=== PATIENT | male | born 1950 | race Caucasian/White ===

== ENCOUNTER 2018-05-14 11:21 | Emergency (ER) | payer MEDICARE, SELFPAY ==
[2018-05-14] VITALS (14 sets, daily range): BP systolic 129–185; BP diastolic 60–103; PULSE 41–83; RESP 12–21; TEMP 36.4; O2SAT 53–99
--- NOTE | 2018-05-14 11:31 | DI.RAD.S_ITS ---
PROCEDURE: XR WRIST RT MIN 3V INDICATIONS: injury, fell off ladder TECHNIQUE: 3 views of the wrist were acquired. COMPARISON: None. FINDINGS: Bones: Acute comminuted fracture involving distal radial shaft with fracture line extending to radiocarpal joint space. There is dorsal displacement and angulation at fracture site and shortening of distal radial shaft. Scaphoid view: Scaphoid is grossly intact. Soft tissues: No suspicious soft tissue calcifications. IMPRESSION: Acute comminuted intra-articular distal radial fracture as above. Dictated by: Paul Olsen M.D. on 05/14/2018 at 11:48 Approved by: Paul Olsen M.D. on 05/14/2018 at 11:49
--- NOTE | 2018-05-14 11:35 | ED_ITS ---
HPI - Extremity Injury (Upper) General Chief Complaint: Trauma Stated Complaint: RT HAND, WRIST SWELLING , PAIN Time Seen by Provider: 05/14/18 11:32 Source: patient Mode of arrival: ambulatory Limitations: no limitations History of Present Illness HPI narrative: Patient is a 67-year-old male here for evaluation of a right wrist injury. Patient states that prior to arrival he was up on a ladder trimming a tree when he fell landing on his right wrist and his right side. States he did not hit his head. Was able to ambulate afterwards. Does have right-sided pain. No neck pain. No headache. Does have deformity to the right wrist. No interventions prior to arrival here in the emergency department. Patient arrived by POV. Related Data Previous Rx's Medication Instructions Recorded hydrocodone-acetaminophen 1 tab PO Q4-6H PRN #14 tab 05/14/18 Allergies Allergy/AdvReac Type Severity Reaction Status Date / Time No Known Drug Allergies Allergy Verified 05/14/18 11:42 Review of Systems Constitutional Denies fatigue, Denies fever(s), Denies frequent falls and Denies headache(s) Eyes Denies blurry vision and Denies diplopia ENT Ears, Nose, Mouth, and Throat: Denies dental pain, Denies dizziness, Denies headache(s), Denies neck pain and Denies sore throat Cardiovascular Denies chest pain, Denies syncope and Denies dyspnea Respiratory Denies dyspnea Gastrointestinal Gastrointestinal: Denies abdominal pain, Denies change in bowel habits and Denies nausea Musculoskeletal Denies neck pain Comments: Right wrist pain Integumentary/Breasts Denies lesions and Denies rash Neurologic Denies confusion, Denies dizziness, Denies syncope, Denies frequent falls and Denies headache(s) Psychiatric Denies confusion Endocrine Denies fatigue Hematologic/Lymphatic Denies easy bleeding and Denies easy bruising [facility] Medical History Diabetes (Acute) Surgical History No pertinent past surgical history (Acute) Social History Smoking Status: Never smoker Exam Initial Vital Signs Initial Vital Signs: Vital Signs Temperature 97.5 F L 05/14/18 11:36 Pulse Rate 41 L 09/08/18 11:36 Respiratory Rate 18 05/14/18 11:36 Blood Pressure 139/60 05/14/18 11:36 Pulse Oximetry 98 05/14/18 11:36 Const General: cooperative, healthy appearing, comfortable, well developed, well groomed and No acute distress Orientation: alert, awake and oriented x3 HENMT Head: normal to inspection, normocephalic and atraumatic Nose: external nose normal Face and sinus: normal facial exam Chest Chest: normal inspection of the chest and normal palpation of entire chest wall Resp Effort & Inspection: normal respiratory effort Auscultation: clear to auscultation bilaterally Cardio Rate: regular rate Rhythm: regular rhythm Heart Sounds: no murmurs Pulses: radial pulses present on the right GI Inspection: non-distended Palpation: soft, No firm and No tender Back/Spine/Pelvis Cervical Spine: cervical ROM normal, No collar present, No cervical muscular tenderness, No pain with cervical ROM and No step off deformity Sacroiliac Joints: nontender Skin Lesions: no lesions Rashes: no rashes Neuro General: alert, awake and oriented x3 Cranial Nerves: CN's II-XI intact bilaterally Other: Sensation intact to light touch right upper extremity Extrem Other: Extremity exam unremarkable except for obvious deformity to right wrist. Unable to pronate and supinate with his right wrist. Right shoulder right elbow unremarkable. Psych Appearance: grossly normal and well kempt Procedures FAST Exam FAST Exam 1: Fluid in Morison's pouch: Yes Fluid in Splenorenal Junction: No Fluid around bladder, Transverse view: No Fluid around bladder, Sagittal view: No Fluid in Pericardial Sac: No Gross Wall Motion Abnormality: No Study normal for this patient: No Images saved for further review: No Orthopedic Splinting/Casting Injury #1: Side: right Upper Extremity Injury Location: wrist Upper Extremity Immobilizer: sugar tong splint Procedural Sedation Patient Age: Patient is 5yrs or older Indication: fracture/dislocation reduction Presedation Evaluation: Neurovascularly intact ASA Class: II Mallampati Airway Classification: Class I Preparation: awake overnight monitor applied, pulse oximeter, capnometry used and supplemental O2 applied Ketamine: IV Ketamine dose (mg): 200 ED Sedation Level: Moderate (Concious) Complications: Respiratory Depression-Repositioning Required Interventions: Airway repositioned and Assist by BVM Course Orders Ordered: ED Orders 05/14/18 11:31 XR wrist RT min 3V Stat 05/14/18 12:01 CT abdomen pelvis w con Stat 05/14/18 12:05 Basic Metabolic Panel Stat Complete Blood Count AUTO DIFF Stat 05/14/18 14:05 XR wrist RT min 3V Stat Discontinued Medications Sodium Chloride (Normal Saline 0.9%) 1,000 mls @ 1,000 mls/hr IV BOLUS ONE Stop: 05/14/18 12:59 Last Infusion: 05/14/18 13:41 Dose: 0 mls/hr Admin: 05/14/18 12:31 Dose: 1,000 mls/hr Ketamine HCl (Ketalar) 200 mg IV NOW ONE Stop: 05/14/18 13:21 Last Admin: 05/14/18 13:50 Dose: 200 mg Vital Signs - 8 hr 05/14/18 11:36 05/14/18 12:15 05/14/18 13:00 Temperature 97.5 F L Pulse Rate 41 L 49 L 52 L Respiratory Rate 18 17 16 Blood Pressure 139/60 Blood Pressure [Left Arm] 129/66 131/72 Pulse Oximetry 98 99 99 05/14/18 13:50 05/14/18 13:55 05/14/18 14:00 Temperature Pulse Rate 49 L 61 68 Respiratory Rate 21 16 17 Blood Pressure Blood Pressure [Left Arm] 157/82 H 185/89 H 179/87 H Pulse Oximetry 97 88 L 98 05/14/18 14:05 05/14/18 14:10 05/14/18 14:13 Temperature Pulse Rate 66 62 83 Respiratory Rate 15 14 12 Blood Pressure Blood Pressure [Left Arm] 160/87 H 161/103 H Pulse Oximetry 98 98 05/14/18 14:15 05/14/18 14:20 05/14/18 14:25 Temperature Pulse Rate 58 L 55 L 54 L Respiratory Rate 14 15 16 Blood Pressure Blood Pressure [Left Arm] 161/87 H 159/96 H 158/86 H Pulse Oximetry 97 97 53 L 05/14/18 15:00 05/14/18 15:33 Temperature Pulse Rate 49 L 49 L Respiratory Rate 15 15 Blood Pressure 129/73 Blood Pressure [Left Arm] 139/66 Pulse Oximetry 97 99 MDM - Extremity Injury (Upper) Lab Data Attestation: I reviewed the patient's lab results. Result diagrams: 05/14/18 12:05 09/08/18 12:05 Lab Results 05/14/18 05/14/18 Range/Units 12:05 12:05 WBC 6.3 (4.5-11.0) X10^3/uL RBC 4.17 L (4.5-5.9) X10^6/uL Hgb 14.4 (13.5-17.5) g/dL Hct 40.5 L (41-53) % MCV 97.0 (80-100) fL MCH 34.5 H (26-34) PG MCHC 35.5 (30-36) % RDW 13.0 (11.6-14.8) % Plt Count 151 (150-400) X10^3/uL Neut % (Auto) 70.3 (50-75) % Lymph % (Auto) 19.4 L (25-40) % [place] % (Auto) 8.1 (3-14) % Eos % (Auto) 1.8 L (2-4) % Baso % (Auto) 0.4 (0-2) % Neut # (Auto) 4400 (7250-4100) /uL Sodium 141 (137-145) mmol/L Potassium 4.3 (3.4-5.1) mmol/L Chloride 103 (98-107) mmol/L Carbon Dioxide 29 (22-32) mmol/L BUN 20 (9-20) mg/dL Creatinine 0.90 (0.66-1.25) mg/dL Estimated GFR > 60.0 (>60) mL/min BUN/Creatinine Ratio 22.2 H (6-22) Glucose 223 H (80-110) mg/dL Calcium 9.2 (8.4-10.2) mg/dL Imaging Data X-ray wrist: Radiologist's impression: [address] [address] XRay Report Signed Patient: Albino Loza EMR#: [id number] : 2Acct:[id number] Age/Sex: 67 / MDate of Service: 05/14/18 Loc: ED Accession Number: [id number] Procedure: XR wrist RT min 3V Ordering Provider: Wilber Pavon D.O. PROCEDURE: XR WRIST RT MIN 3V INDICATIONS: injury, fell off ladder TECHNIQUE: 3 views of the wrist were acquired. COMPARISON: None. FINDINGS: Bones: Acute comminuted fracture involving distal radial shaft with fracture line extending to radiocarpal joint space. There is dorsal displacement and angulation at fracture site and shortening of distal radial shaft. Scaphoid view: Scaphoid is grossly intact. Soft tissues: No suspicious soft tissue calcifications. IMPRESSION: Acute comminuted intra-articular distal radial fracture as above. Dictated by: Paul Olsen M.D. on 05/14/2018 at 11:48 Approved by: Paul Olsen M.D. on 05/14/2018 at 11:49 X-ray wrist post: Radiologist's impression: [address] [address] XRay Report Signed Patient: Albino Loza EMR#: [id number] : 1950cct:[id number] Age/Sex: 67 / MDate of Service: 05/14/18 Loc: ED Accession Number: [id number] Procedure: XR wrist RT min 3V Ordering Provider: Wilber Pavon D.O. PROCEDURE: XR WRIST RT MIN 3V INDICATIONS: post redustion TECHNIQUE: 3 views of the wrist were acquired. COMPARISON: [facility], , XR WRIST RT MIN 3V, 05/14/2018, 11:37. FINDINGS: Bones: There is a double reduction of earlier noted comminuted intra-articular distal radial fracture with improved right wrist alignment. No new fracture or dislocation is seen. Soft tissues: No suspicious soft tissue calcifications. IMPRESSION: Interval reduction of earlier noted the comminuted distal radial fracture with improved wrist alignment. Dictated by: Paul Olsen M.D. on 05/14/2018 at 14:40 Approved by: Paul lOsen M.D. on 05/14/2018 at 14:41 CT scan - abdomen: Radiologist's impression: [address] [address] [address] Scan Report Signed Patient: Albino Loza EMR#: [id number] : 2Acct:[id number] Age/Sex: 67 / MDate of Service: 05/14/18 Loc: ED Accession Number: [id number] Procedure: CT abdomen pelvis w con Ordering Provider: Wilber Pavon D.O. PROCEDURE: CT ABDOMEN PELVIS W CON INDICATIONS: Fall, question blood around Right renal on FAST TECHNIQUE: After the administration of intravenous contrast, 5 mm thick sections acquired from the diaphragm to the symphysis. 5 mm coronal and sagittal reformats were acquired. For radiation dose reduction, the following was used: automated exposure control, adjustment of mA and/or kV according to patient size. COMPARISON: None. FINDINGS: Image quality: Excellent. ABDOMEN: Lung bases: Lung bases are clear. Heart size is normal. Solid organs: Liver is normal in size. There is hepatic steatosis. A slightly lobulated 1.9 x 1.9 cm hypodense structure is noted in left lobe of liver and measures 6 Hounsfield unit density most consistent with hepatic cyst. Gallbladder is within normal limits. Biliary system is non dilated. Pancreas enhances normally. Spleen is normal in size and enhancement. No adrenal nodules. Kidneys demonstrate normal size and enhancement, without hydronephrosis. No perinephric fat stranding or fluid. Peritoneum and bowel: Bowel loops demonstrate normal wall thickness and caliber. No free fluid or air. Small hiatal hernia is seen. Nodes and vessels: No retroperitoneal or mesenteric adenopathy by size criteria. Aorta and inferior vena cava are normal in size. Miscellaneous: No ventral hernias. PELVIS: Genitourinary: Bladder wall thickness is normal. Miscellaneous: No inguinal hernias or adenopathy. Bones: No suspicious bony lesions. No vertebral body compression fractures. IMPRESSION: 1. No acute solid organ injury within abdomen or pelvis. No free fluid or free air. No perinephric fluid collection. 2. Hepatic steatosis with suggestion of a 1.9 x 1.9 cm hepatic cyst. 3. No gross acute fracture or dislocation is seen. Dictated by: Paul Olsen M.D. on 05/14/2018 at 12:54 Approved by: Paul Olsen M.D. on 05/14/2018 at 12:57 [facility] Narrative Medical decision making narrative: During my initial evaluation I had concern for fluid in the right upper quadrant on my fast exam. CT scan of the abdomen pelvis was ordered which did not show any acute pathology. X-rays of the right wrist showed a distal radius fracture which was reduced and splinted as above. Patient was sedated using ketamine. He did become apneic during this sedation requiring airway repositioning and [id number]. He recovered without problems and recovered from the sedation without issues. I did discuss the case with Dr. Brice with Orthopedics who evaluated the pictures who stated that the patient could follow up in the clinic next week. Sent the patient home with pain medication. He was instructed on the care of his splint. He was given return precautions. No other injuries were found on my exam from the fall. Patient expressed understanding and agreement with plan. Discharge Plan Departure Patient Disposition: Home Clinical Impression: Distal radius fracture, right Discharge Date/Time: 05/14/18 15:36 Interventions: ED Discharge Assessment Last Done: 05/14/18 15:33 Instructions: DI for Wrist Fracture, How to Take Care of Your Splint Activity Restrictions/Additional Instructions: You need to keep the splint on and keep it clean and keep it dry. You can use the sling for support. Call the [facility] group at [phone] for a follow-up. Call them on Wednesday. Keep your arm elevated and iced as much as possible. Return to the emergency department for any new or worsening symptoms Prescriptions: New hydrocodone-acetaminophen 5-325 mg tablet 1 tab PO Q4-6H PRN (Reason: pain) Qty: 14 RF: 0
--- NOTE | 2018-05-14 12:01 | DI.CT.S_ITS ---
PROCEDURE: CT ABDOMEN PELVIS W CON INDICATIONS: Fall, question blood around Right renal on FAST TECHNIQUE: After the administration of intravenous contrast, 5 mm thick sections acquired from the diaphragm to the symphysis. 5 mm coronal and sagittal reformats were acquired. For radiation dose reduction, the following was used: automated exposure control, adjustment of mA and/or kV according to patient size. COMPARISON: None. FINDINGS: Image quality: Excellent. ABDOMEN: Lung bases: Lung bases are clear. Heart size is normal. Solid organs: Liver is normal in size. There is hepatic steatosis. A slightly lobulated 1.9 x 1.9 cm hypodense structure is noted in left lobe of liver and measures 6 Hounsfield unit density most consistent with hepatic cyst. Gallbladder is within normal limits. Biliary system is non dilated. Pancreas enhances normally. Spleen is normal in size and enhancement. No adrenal nodules. Kidneys demonstrate normal size and enhancement, without hydronephrosis. No perinephric fat stranding or fluid. Peritoneum and bowel: Bowel loops demonstrate normal wall thickness and caliber. No free fluid or air. Small hiatal hernia is seen. Nodes and vessels: No retroperitoneal or mesenteric adenopathy by size criteria. Aorta and inferior vena cava are normal in size. Miscellaneous: No ventral hernias. PELVIS: Genitourinary: Bladder wall thickness is normal. Miscellaneous: No inguinal hernias or adenopathy. Bones: No suspicious bony lesions. No vertebral body compression fractures. IMPRESSION: 1. No acute solid organ injury within abdomen or pelvis. No free fluid or free air. No perinephric fluid collection. 2. Hepatic steatosis with suggestion of a 1.9 x 1.9 cm hepatic cyst. 3. No gross acute fracture or dislocation is seen. Dictated by: Paul Olsen M.D. on 05/14/2018 at 12:54 Approved by: Paul Olsen M.D. on 05/14/2018 at 12:57
--- NOTE | 2018-05-14 12:17 | PC.NURSE ---
Pt states pain is 8/10. Ice applied to wrist. Pt still declines pain medication at this time. Dr. Pavon aware.
[2018-05-14 12:20] LABS: Add Manual Diff / Slide Review NO; Basophils Percent Auto 0.4 % (0-2); Eosinophils Percent Auto 1.8 % (2-4); Hematocrit 40.5 % (41-53); Hemoglobin 14.4 g/dL (13.5-17.5); Lymphocytes Percent Auto 19.4 % (25-40); Mean Corpuscular HGB Conc 35.5 % (30-36); Mean Corpuscular Hemoglobin 34.5 PG (26-34); Monocytes Percent Auto 8.1 % (3-14); Neutrophils Absolute Auto 4400 /uL (3000-5900); Neutrophils Percent Auto 70.3 % (50-75); Platelet Count 151 X10^3/uL (150-400); Red Blood Cell Count 4.17 X10^6/uL (4.5-5.9); White Blood Cell Count 6.3 X10^3/uL (4.5-11.0)
[2018-05-14 12:29] LABS: BUN Creatinine Ratio 22.2 (6-22); Blood Urea Nitrogen 20 mg/dL (9-20); Calcium 9.2 mg/dL (8.4-10.2); Carbon Dioxide 29 mmol/L (22-32); Chloride 103 mmol/L (98-107); Estimated Glomerular Filt Rate > 60.0 mL/min (>60); Glucose 223 mg/dL (80-110); HEMOLYSIS 42 (0-50); Potassium 4.3 mmol/L (3.4-5.1); Sodium 141 mmol/L (137-145)
[2018-05-14] MEDS: SODIUM CHLORIDE 0.9% 1,000 ML 1000 ML IV (12:31)
[2018-05-14] MEDS: KETAMINE 500 MG/5 ML INJ 200 MG IV (13:50)
--- NOTE | 2018-05-14 14:05 | DI.RAD.S_ITS ---
PROCEDURE: XR WRIST RT MIN 3V INDICATIONS: post redustion TECHNIQUE: 3 views of the wrist were acquired. COMPARISON: [facility], CR, XR WRIST RT MIN 3V, 05/14/2018, 11:37. FINDINGS: Bones: There is a double reduction of earlier noted comminuted intra-articular distal radial fracture with improved right wrist alignment. No new fracture or dislocation is seen. Soft tissues: No suspicious soft tissue calcifications. IMPRESSION: Interval reduction of earlier noted the comminuted distal radial fracture with improved wrist alignment. Dictated by: Paul Olsen M.D. on 05/14/2018 at 14:40 Approved by: Paul Olsen M.D. on 05/14/2018 at 14:41
== END 2018-05-14 15:36 | disposition home or self-care (01) ==
PROVIDERS: Emergency Provider Emergency Medicine; PCP Family Medicine
DX: S52.501A Unspecified fracture of the lower end of right radius, initial encounter for closed fracture (principal); W11.XXXA Fall on and from ladder, initial encounter
CPT/HCPCS: 25505; 36591; 73110; 74177; 80048; 85025; 94770; 96360; 99152; 99285; 99291; Q9967

== ENCOUNTER → 2018-05-17 13:25 | Outpatient (CLI) | payer MEDICARE, SELFPAY | PROVIDERS: PCP Family Medicine; Visit Provider Physician Assistant | DX: Z01.818 Encounter for other preprocedural examination (principal) | CPT/HCPCS: 93005; 93010 ==

== ENCOUNTER → 2020-08-09 19:06 | Outpatient (ROUT) | payer MEDICARE, SELFPAY ==
[2020-08-09 19:41] LABS: Add Manual Diff / Slide Review NO; Basophils Absolute Auto 0 /uL (0-100); Basophils Percent Auto 0.4 % (0-2); Eosinophils Absolute Auto 200 /uL (0-450); Eosinophils Percent Auto 2.6 % (2-4); Hemoglobin 14.9 g/dL (13.5-17.5); Lymphocytes Absolute Auto 2100 /uL (1100-4500); Mean Corpuscular HGB Conc 34.6 % (30-36); Mean Corpuscular Hemoglobin 34.1 PG (26-34); Mean Corpuscular Volume 98.4 fL (80-100); Monocytes Absolute Auto 600 /uL (0-900); Monocytes Percent Auto 8.6 % (3-14); Neutrophils Absolute Auto 4000 /uL (1500-7000); Neutrophils Percent Auto 58.4 % (50-75); Platelet Count 190 X10^3/uL (150-400); Red Blood Cell Count 4.37 X10^6/uL (4.5-5.9); White Blood Cell Count 6.8 X10^3/uL (4.5-11.0)
[2020-08-09 19:45] LABS: Aspartate Aminotransferase 30 IU/L (17-59); BUN Creatinine Ratio 19.1 (6-22); Blood Urea Nitrogen 18 mg/dL (9-20); Calcium 9.4 mg/dL (8.4-10.2); Carbon Dioxide 31 mmol/L (22-32); Chloride 102 mmol/L (98-107); Cholesterol 176 mg/dL (140-199); Estimated Glomerular Filt Rate > 60.0 mL/min (>60); Glucose 133 mg/dL (80-110); HDL Cholesterol 71 mg/dL (40-60); Potassium 4.1 mmol/L (3.4-5.1); Sodium 139 mmol/L (137-145); Triglycerides 112 mg/dL (35-150)
[2020-08-09 19:46] LABS: HEMOLYSIS < 15 (0-50); LDL Cholesterol Calculated 83 mg/dL (<100)
[2020-08-09 19:51] LABS: C-Reactive Protein Quant < 0.5 mg/dL (<1.0)
[2020-08-09 20:00] LABS: Hemoglobin A1C% w Est Avg Glu 6.5 % (4.0-6.0)
[2020-08-09 20:16] LABS: Prostate Specific Antigen 3.45 ng/mL (0.10-4.00)
[2020-08-09 20:35] LABS: Vitamin B12 442 pg/mL (239-931)
== END ==
PROVIDERS: PCP Family Medicine; Visit Provider Internal Medicine
DX: E11.9 Type 2 diabetes mellitus without complications (principal); E78.2 Mixed hyperlipidemia; E53.8 Deficiency of other specified B group vitamins; L40.9 Psoriasis, unspecified; N40.0 Benign prostatic hyperplasia without lower urinary tract symptoms
CPT/HCPCS: 80048; 80061; 82607; 83036; 84153; 84450; 85025; 86140

== ENCOUNTER → 2022-01-30 08:42 | Outpatient (CLI) | payer MEDICARE, SELFPAY ==
[2022-01-30 09:33] LABS: Hematocrit 42.1 % (41-53); Hemoglobin 14.8 g/dL (13.5-17.5); Mean Corpuscular HGB Conc 35.2 % (30-36); Mean Corpuscular Hemoglobin 33.7 PG (26-34); Mean Corpuscular Volume 95.6 fL (80-100); Platelet Count 180 X10^3/uL (150-400); White Blood Cell Count 5.1 X10^3/uL (4.5-11.0)
[2022-01-30 09:47] LABS: Hemoglobin A1C% w Est Avg Glu 6.6 % (4.0-6.0)
[2022-01-30 09:48] LABS: Alanine Aminotransferase 36 IU/L (<50); Albumin 4.6 g/dL (3.5-5.0); Albumin Globulin Ratio 1.6 (1.0-2.8); Alkaline Phosphatase 69 U/L (38-126); Aspartate Aminotransferase 33 IU/L (17-59); Bilirubin Total 0.8 mg/dL (0.2-1.3); Blood Urea Nitrogen 15 mg/dL (9-20); Calcium 9.3 mg/dL (8.4-10.2); Carbon Dioxide 31 mmol/L (22-32); Chloride 101 mmol/L (98-107); Cholesterol 161 mg/dL (140-199); Estimated Glomerular Filt Rate > 60 mL/min (>60); Globulin 2.9 g/dL (1.7-4.1); Glucose 152 mg/dL (80-110); HDL Cholesterol 66 mg/dL (40-60); HEMOLYSIS < 15 (0-50); LDL Cholesterol Calculated 80 mg/dL (<100); Potassium 4.4 mmol/L (3.4-5.1); Sodium 138 mmol/L (137-145); Total Protein 7.5 g/dL (6.3-8.2); Triglycerides 77 mg/dL (35-150)
[2022-01-30 10:14] LABS: Creatinine Urine Random 108.7 mg/dL
[2022-01-30 10:15] LABS: Prostate Specific Antigen 1.08 ng/mL (0.10-4.00)
[2022-01-30 10:19] LABS: Microalbumin Urine Random < 0.6 mg/dL (0-1.6)
[2022-01-30 10:43] LABS: TSH w/ Reflex to FT4 2.09 uIU/mL (0.47-4.68)
== END ==
PROVIDERS: PCP Internal Medicine; Referring Provider Internal Medicine; Visit Provider Internal Medicine
DX: E11.69 Type 2 diabetes mellitus with other specified complication (principal); N40.0 Benign prostatic hyperplasia without lower urinary tract symptoms; E78.5 Hyperlipidemia, unspecified; L40.9 Psoriasis, unspecified
CPT/HCPCS: 36415; 80053; 80061; 82043; 82570; 83036; 84153; 84443; 85027

== ENCOUNTER → 2022-02-09 08:54 | Outpatient (CLI) | payer MEDICARE, SELFPAY ==
[2022-02-09 09:59] LABS: COVID19 -Nasal RAPID Negative (Negative)
== END ==
PROVIDERS: PCP Internal Medicine; Visit Provider Surgery
DX: Z01.812 Encounter for preprocedural laboratory examination (principal); Z20.822 Contact with and (suspected) exposure to COVID-19
CPT/HCPCS: 87635; C9803

== ENCOUNTER 2022-02-10 08:08 | Day surgery (SDC) | payer MEDICARE, SELFPAY ==
[2022-02-10] VITALS (7 sets, daily range): BP systolic 117–179; BP diastolic 61–84; PULSE 57–64; RESP 12–20; TEMP 36.3–36.5; O2SAT 95–99; BMI 29.8
--- NOTE | 2022-02-10 | PATH_ITS ---
[facility] Accession Number: [id number] . 01 Material submitted: . colon - ASCENDING COLON POLYP . 01 Clinical history: . DX COLONSCOPY PERSONAL HISTORY OF COLONIC POLYPS . 01 Diagnosis: Ascending Colon Polyp: Portions of tubular adenoma x 2. . MRV 02/13/2022 1216 Local . 01 Electronically signed: . Suma Woodall MD, Pathologist NPI- [id number] . 01 Gross description: . ASCENDING COLON POLYP: Received in formalin are 2 fragment(s) of field, soft tissue measuring 0.3 x 0.3 x 0.2 cm to 0.2 x 0.1 x 0.1 cm submitted entirely in 1 cassette(s) /CPE 02/11/2022 0824 Local . 01 Pathologist provided ICD-10: Z86.010, K63.5 . 01 CPT . 228510 Specimen Comment: A courtesy copy of this report has been sent to [phone] Performed at: 01 [facility] [address] [place] [address], [place], [place] [id number] MD Bryant Gibbons MD Phone: [phone]
[2022-02-10] MEDS: LACTATED RINGERS 1,000 ML 200 ML IV (08:22)
--- NOTE | 2022-02-10 09:10 | PM.HP.1 ---
History of Present Illness History of Present Illness Date Patient Seen: 02/10/22 Time Patient Seen: 09:10 Chief complaint: DX COLONOSCOPY Narrative: The patient presents for colorectal screening. He has a personal history of colonic polyps last colonoscopy 5 years ago. No personal or family history of colon cancer. On further history denies any recent gastrointestinal symptoms. No nausea, vomiting, abdominal pain, loss of appetite, unexplained weight loss, change in bowel habits, diarrhea, constipation, melena, hematochezia, or bright red blood per rectum. Patient History Medical History Advanced directives, counseling/discussion Allergic rhinitis, unspecified BPH w urinary obs/LUTS Chicken pox Chronic back pain Colon polyps Diabetes DM type 2 with diabetic dyslipidemia Fractures Measles Mixed hyperlipidemia Mumps Obstructive sleep apnea Overweight Personal history of colonic polyps Pneumothorax (~1968) Psoriasis, unspecified Shoulder pain (~1971) Sleep apnea Wears glasses Surgical History Anesthesia Cyst (~2016) History of colonoscopy History of elbow surgery History of inguinal hernia repair History of surgery on wrist (~2017) No pertinent past surgical history Family & Social History Family History Father Cancer Mother Cancer Sister Multiple sclerosis Grandfather Cancer Grandmother Stroke Social History: household members spouse Tobacco & Substance use: Smoking Status Never smoker alcohol intake current alcohol intake frequency 0-2 drinks per day Substance Use Type does not use Meds Home Medications and Allergies Home Medications Medication Instructions Recorded Confirmed Type atorvastatin 10 mg tablet 10 mg PO DAILY tab 01/30/22 02/10/22 History metformin 500 mg tablet,extended 500 mg PO DAILY tab 01/30/22 02/10/22 History release 24 hr cetirizine 10 mg tablet 10 mg PO DAILY PRN 02/10/22 02/10/22 History diphenhydramine HCl 25 mg capsule 25 mg PO BEDTIME PRN 02/10/22 02/10/22 History (Benadryl) Allergies Allergy/AdvReac Type Severity Reaction Status Date / Time No Known Drug Allergies Allergy Verified 02/10/22 08:23 Exam Vital Signs (past 8 hours): - 02/10/22 08:26 Temperature 97.7 F Pulse Rate 61 Respiratory Rate 16 Blood Pressure 179/84 H Pulse Oximetry 99 Oxygen Delivery Method Room Air Narrative Exam Narrative: GENERAL: Adult male in no apparent distress HEENT: No scleral icterus CV: Regular rate, no peripheral edema LUNGS: No increased work of breathing. Patient speaks in full sentences without oxygen support. ABDOMEN: Soft, non-tender, non-distended SKIN: Warm and dry Assessment & Plan Assessment & Plan narrative: The patient requires colorectal screening and colonoscopy is recommended. Technical details were discussed. Risks, benefits, alternatives explained. Risks including but not limited to myocardial infarction, aspiration, bleeding, pain, missed lesion, incomplete examination, need for further radiographic studies, colonic perforation, and need for major abdominal surgery were discussed. All questions were answered to their satisfaction, and they are in agreement with this plan. Time Spent With Patient Critical Care time: I spent a total of [] minutes of critical care time on this patient's care today; this time is exclusive of procedural time.
[2022-02-10] MEDS: MIDAZOLAM 5 MG/5 ML VIAL IV (09:41)
[2022-02-10] MEDS: fentaNYL 250 MCG/5 ML INJ 150 MCG IV (09:41)
--- NOTE | 2022-02-10 09:41 | PM.OP.COLON ---
Operative Date/Time/Diagnoses Date of procedure: 02/10/22 Time of procedure: 09:41 Pre-op diagnosis: Personal history of colonic polyps Post-op diagnosis: same Procedure & Clinicians Study performed: Colonoscopy and polypectomy Same procedure as scheduled: Yes Indications: Personal history colon polyps Surgeon: Kwame Crain Procedure Notes Procedure in detail: Medications: Conscious sedation using 5mg IV midazolam and 150mcg IV of fentanyl The history and physical was performed/updated and the patient is ASA class is 2. The procedure was discussed in detail with the patient. Potential risks complications including infection, bleeding, missed diagnosis, perforation, need for surgery, and were explained. Their questions were answered and informed consent was obtained. Patient was brought to the procedure room and placed standard monitoring equipment. The patient's vital signs were monitored continuously throughout the entire procedure. Prior to starting time-out was performed. The patient was placed in the left lateral recumbent position. Procedural sedation was administered. Examination began with a thorough inspection of the perianal area there was no evidence of fissures, fistulae, external hemorrhoids or cutaneous malignancy. The colonoscopy scope was then placed into the anal canal and was advanced to the cecum, which was identified by the ileocecal valve, the appendiceal orifice and the confluence of the taenia. The scope was then slowly withdrawn examining colon thoroughly in all directions, irrigating it of any residual stool. FINDINGS 1. Ascending colon 5 mm polyp removed with biopsy forceps 2. Internal hemorrhoids The patient tolerated the procedure well. They will be discharged once criteria are met. The prep was of good/excellent quality. The withdrawl time was 8 minutes. The sedation time was 20 minutes. Specimen(s): other (Ascending colonic polyp) Complications: none Impression: Colonic polyp Post-procedure Recommendations: Colonoscopy in 5 years Disposition: same day surgery
--- NOTE | 2022-02-10 10:14 | SUR.PHASEII ---
Pt was given discharge instructions. pt states he understands discharge instructions. pt denies pain and states he can get dressed.
== END 2022-02-10 10:23 | disposition home or self-care (01) ==
PROVIDERS: PCP Internal Medicine; Referring Provider Surgery; Visit Provider Surgery
PROC: 0DJD8ZZ Inspection of Lower Intestinal Tract, Via Natural or Artificial Opening Endoscopic (ICD-10-PCS; CPT 45378; principal; 2022-02-10 09:15)
DX: Z12.11 Encounter for screening for malignant neoplasm of colon (principal); Z86.010 Personal history of colon polyps; K64.8 Other hemorrhoids; D12.2 Benign neoplasm of ascending colon
CPT/HCPCS: 45380; 82962; 99152; J2250; J3010

== ENCOUNTER → 2022-09-11 09:35 | Outpatient (CLI) | payer MEDICARE, SELFPAY ==
[2022-09-11 10:42] LABS: Hemoglobin A1C% w Est Avg Glu 6.9 % (4.0-6.0)
[2022-09-11 10:50] LABS: Aspartate Aminotransferase 29 IU/L (17-59); BUN Creatinine Ratio 15.2 (6-22); Blood Urea Nitrogen 12 mg/dL (9-20); Calcium 9.2 mg/dL (8.4-10.2); Carbon Dioxide 29 mmol/L (22-32); Chloride 102 mmol/L (98-107); Cholesterol 170 mg/dL (140-199); Estimated Glomerular Filt Rate > 60 mL/min (>60); Glucose 146 mg/dL (80-110); HDL Cholesterol 67 mg/dL (40-60); HEMOLYSIS < 15 (0-50); LDL Cholesterol Calculated 89 mg/dL (<100); Potassium 4.8 mmol/L (3.4-5.1); Sodium 140 mmol/L (137-145); Triglycerides 68 mg/dL (35-150)
== END ==
PROVIDERS: PCP Internal Medicine; Referring Provider Internal Medicine; Visit Provider Internal Medicine
DX: E11.69 Type 2 diabetes mellitus with other specified complication (principal); E78.2 Mixed hyperlipidemia; E78.5 Hyperlipidemia, unspecified
CPT/HCPCS: 36415; 80048; 80061; 83036; 84450

== ENCOUNTER 2022-09-12 11:33 | Emergency (ER) | payer MEDICARE, SELFPAY ==
[2022-09-12 11:38] VITALS: BP 144/68; PULSE 58; RESP 16; TEMP 36.4; O2SAT 97; BMI 29.5
--- NOTE | 2022-09-12 12:55 | DI.RAD.S_ITS ---
PROCEDURE: XR FINGER LT MIN 2V INDICATIONS: amputation? trauma TECHNIQUE: AP hand, 2 views of the 1st finger(s) acquired. COMPARISON: [facility], , FINGER LT, 04/12/2011, 17:04. FINDINGS: Transverse fracture through the distal 1st phalangeal tip associated with soft tissue laceration. Normal bone mineralization. No radiopaque foreign bodies IMPRESSION: Transverse 1st phalangeal tip fracture with soft tissue laceration. No foreign body. Approved by: Richardson Chan M.D. on 09/12/2022 at 13:15
[2022-09-12] MEDS: ACETAMINOPHEN 325 MG TABLET 975 MG PO (13:27)
[2022-09-12] MEDS: LIDOCAINE 2% INJ MDV 50ML 1 MG INJ (13:28)
[2022-09-12] MEDS: IBUPROFEN 400 MG TABLET 800 MG PO (13:28)
[2022-09-12] MEDS: ONDANSETRON 4 MG ODT SL (13:28)
[2022-09-12] MEDS: TET,DIPH,PERTUSS(ACELL),VAC/PF 0.5 ML SYRINGE IM (13:29)
--- NOTE | 2022-09-12 13:40 | ED.WOUNDLAC ---
HPI - Wound/Laceration <CATIE Alfonso - Last Filed: 09/12/22 16:46> General Chief Complaint: Wound/Laceration Stated Complaint: cut tip of LT thumb almost all the way off Time Seen by Provider: 09/12/22 12:50 Mode of arrival: Ambulatory History of Present Illness HPI narrative: This is a 71-year-old male, right-hand dominant who was splitting wood with a wood splitter this morning and injured his left thumb with a laceration and partial amputation of the distal 3rd of his fingertip through the nail bed. He is not anticoagulated, he does have history of diabetes, KENNETH, and psoriasis. Denies immunosuppression. Does not remember when his tetanus was and wishes to an updated tetanus today. Denies severe pain, denies bleeding, pressure dressing on the wound. 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 Related Data Home Medications Medication Instructions Recorded Confirmed atorvastatin 10 mg tablet 10 mg PO DAILY 01/30/22 09/11/22 metformin 500 mg tablet,extended 500 mg PO DAILY 01/30/22 09/11/22 release 24 hr cetirizine 10 mg tablet 10 mg PO DAILY PRN Allergies 02/10/22 09/11/22 diphenhydramine HCl 25 mg capsule 25 mg PO BEDTIME PRN Insomnia 02/10/22 09/11/22 (Benadryl) Allergies Allergy/AdvReac Type Severity Reaction Status Date / Time ketamine Allergy Severe Anaphylaxis Verified 09/12/22 13:23 Review of Systems <CATIE Alfonso - Last Filed: 09/12/22 16:46> Review of Systems ROS Unobtainable: All systems reviewed & are unremarkable except as noted in HPI and below Patient History <CATIE Alfonso - Last Filed: 09/12/22 16:46> Medical History Advanced directives, counseling/discussion Allergic rhinitis, unspecified Benign essential tremor BPH w urinary obs/LUTS Chicken pox Chronic back pain Colon polyps Diabetes DM type 2 with diabetic dyslipidemia Fractures Measles Medicare annual wellness visit, initial Mixed hyperlipidemia Mumps Obstructive sleep apnea Overweight Personal history of colonic polyps Pneumothorax (~1968) Psoriasis, unspecified Shoulder pain (~1971) Stress reaction Wears glasses Surgical History Anesthesia Cyst (~2016) History of colonoscopy History of elbow surgery History of inguinal hernia repair History of surgery on wrist (~2017) No pertinent past surgical history Family History Father Cancer Mother Cancer Sister Multiple sclerosis Grandfather Cancer Grandmother Stroke Social History household members: spouse Smoking Status: Never smoker alcohol intake: current Smoking Status: Never smoker alcohol intake frequency: 0-2 drinks per day Substance Use Type: does not use Exam <CATIE Alfonso - Last Filed: 09/12/22 16:46> Narrative Exam Narrative: Reviewed vitals signs and nursing notes. General: cooperative, comfortable, in no acute distress, well groomed MSK: moves all extremities, neurovascularly intact, no weakness, normal tone see below for thumb injury details Skin: brisk capillary refill, without pallor or erythema, left thumb with full-thickness laceration and open tuft fracture of the distal phalanx, neurovascularly intact, brisk cap refill to the distal thumb, flexion, extension intact and isolated each joint, bleeding is controlled with a pressure dressing, wound has been irrigated with normal saline and does not appear contaminated, laceration is through the nail bed. Neuro: normal speech and cognition, A&O x3, ambulatory, clear speech Psych: mental status is grossly normal, congruent mood, normal affect, pleasant and cooperative Initial Vital Signs Initial Vital Signs: Vital Signs Temperature 97.5 F L 09/12/22 11:38 Pulse Rate 58 L 09/12/22 11:38 Respiratory Rate 16 09/12/22 11:38 Blood Pressure 144/68 H 09/12/22 11:38 Pulse Oximetry 97 09/12/22 11:38 Oxygen Delivery Method 09/12/22 11:38 <Trinh Robles DO - Last Filed: 09/12/22 19:32> Initial Vital Signs Initial Vital Signs: Vital Signs Temperature 97.5 F L 09/12/22 11:38 Pulse Rate 58 L 09/12/22 11:38 Respiratory Rate 16 09/12/22 11:38 Blood Pressure 144/68 H 09/12/22 11:38 Pulse Oximetry 97 09/12/22 11:38 Oxygen Delivery Method 09/12/22 11:38 Course <CATIE Alfonso - Last Filed: 09/12/22 16:46> Orders Ordered: ED Orders 09/12/22 12:55 XR finger LT min 2V Stat 09/12/22 17:10 XR C-arm up to 60 min Stat XR finger LT min 2V Stat Discontinued Medications Acetaminophen (Acetaminophen 325 Mg Tablet) 975 mg PO NOW ONE Stop: 09/12/22 13:10 Last Admin: 09/12/22 13:27 Dose: 975 mg Documented By: SB Bupivacaine HCl (Bupivacaine 0.25% (Pf) Vial) 30 ml INJ INTRA-OP ONE Stop: 09/12/22 14:21 Last Admin: 09/12/22 14:37 Dose: 30 ml Documented By: GUILHERME Diphtheria/Tetanus/Acell Pertussis (Tet,Diph,Pertuss(Acell),Vac/Pf 0.5 Ml Syringe) 0.5 ml IM .ONCE ONE Stop: 09/12/22 13:10 Last Admin: 09/12/22 13:29 Dose: 0.5 ml Documented By: GUILHERME Cefazolin Sodium/Dextrose (Ancef) 100 mls @ 200 mls/hr IV NOW ONE Stop: 09/12/22 14:43 Last Infusion: 09/12/22 15:16 Dose: 0 mls/hr Documented By: Admin: 09/12/22 14:37 Dose: 200 mls/hr Documented By: GUILHERME Ibuprofen (Ibuprofen 400 Mg Tablet) 800 mg PO NOW ONE Stop: 09/12/22 13:10 Last Admin: 09/12/22 13:28 Dose: 800 mg Documented By: GUILHERME Lidocaine HCl (Lidocaine 1% (Pf) 5 Ml) 10 ml INJ NOW ONE Stop: 09/12/22 13:10 Last Admin: 09/12/22 13:29 Dose: Not Given Documented By: GUILHERME Lidocaine HCl (Lidocaine 2% Inj Mdv 50ml) 1 mg INJ INTRA-OP ONE Stop: 09/12/22 13:24 Last Admin: 09/12/22 13:28 Dose: 1 mg Documented By: GUILHERME Ondansetron HCl (Ondansetron 4 Mg Odt) 4 mg SL NOW ONE Stop: 09/12/22 13:10 Last Admin: 09/12/22 13:28 Dose: 4 mg Documented By: SB Vital Signs Vital signs: Vital Signs - 8 hr 09/12/22 11:38 09/12/22 14:16 09/12/22 14:17 Temperature 97.5 F L Pulse Rate 58 L 59 L Respiratory Rate 16 Blood Pressure 144/68 H 160/78 H 160/78 H Pulse Oximetry 97 98 Oxygen Delivery Method Room Air 09/12/22 14:17 Temperature Pulse Rate 60 Respiratory Rate Blood Pressure Pulse Oximetry 97 Oxygen Delivery Method <Trinh Robles DO - Last Filed: 09/12/22 19:32> Orders Ordered: ED Orders 09/12/22 12:55 XR finger LT min 2V Stat 09/12/22 17:10 XR C-arm up to 60 min Stat XR finger LT min 2V Stat Discontinued Medications Acetaminophen (Acetaminophen 325 Mg Tablet) 975 mg PO NOW ONE Stop: 09/12/22 13:10 Last Admin: 09/12/22 13:27 Dose: 975 mg Documented By: GUILHERME Bupivacaine HCl (Bupivacaine 0.25% (Pf) Vial) 30 ml INJ INTRA-OP ONE Stop: 09/12/22 14:21 Last Admin: 09/12/22 14:37 Dose: 30 ml Documented By: GUILHERME Diphtheria/Tetanus/Acell Pertussis (Tet,Diph,Pertuss(Acell),Vac/Pf 0.5 Ml Syringe) 0.5 ml IM .ONCE ONE Stop: 09/12/22 13:10 Last Admin: 09/12/22 13:29 Dose: 0.5 ml Documented By: GUILHERME Cefazolin Sodium/Dextrose (Ancef) 100 mls @ 200 mls/hr IV NOW ONE Stop: 09/12/22 14:43 Last Infusion: 09/12/22 15:16 Dose: 0 mls/hr Documented By: Admin: 09/12/22 14:37 Dose: 200 mls/hr Documented By: SB Ibuprofen (Ibuprofen 400 Mg Tablet) 800 mg PO NOW ONE Stop: 09/12/22 13:10 Last Admin: 09/12/22 13:28 Dose: 800 mg Documented By: SB Lidocaine HCl (Lidocaine 1% (Pf) 5 Ml) 10 ml INJ NOW ONE Stop: 09/12/22 13:10 Last Admin: 09/12/22 13:29 Dose: Not Given Documented By: GUILHERME Lidocaine HCl (Lidocaine 2% Inj Mdv 50ml) 1 mg INJ INTRA-OP ONE Stop: 09/12/22 13:24 Last Admin: 09/12/22 13:28 Dose: 1 mg Documented By: GUILHERME Ondansetron HCl (Ondansetron 4 Mg Odt) 4 mg SL NOW ONE Stop: 09/12/22 13:10 Last Admin: 09/12/22 13:28 Dose: 4 mg Documented By: GUILHERME Vital Signs Vital signs: Vital Signs - 8 hr 09/12/22 11:38 09/12/22 14:16 09/12/22 14:17 Temperature 97.5 F L Pulse Rate 58 L 59 L Respiratory Rate 16 Blood Pressure 144/68 H 160/78 H 160/78 H Pulse Oximetry 97 98 Oxygen Delivery Method Room Air 09/12/22 14:17 Temperature Pulse Rate 60 Respiratory Rate Blood Pressure Pulse Oximetry 97 Oxygen Delivery Method [facility] - Wound/Laceration <Destiny Nguyen [facility] - Last Filed: 09/12/22 16:46> Imaging Data Extremity x-ray #1: Radiologist's Impression: PROCEDURE:? XR FINGER LT MIN 2V ? INDICATIONS:? amputation? trauma ? TECHNIQUE:? AP hand, 2 views of the 1st finger(s) acquired.? ? COMPARISON:? [facility], , FINGER LT, 04/12/2011, 17:04. ? FINDINGS: Transverse fracture through the distal 1st phalangeal tip associated with soft tissue laceration.? Normal bone mineralization.? No radiopaque foreign bodies ? IMPRESSION:? ? Transverse 1st phalangeal tip fracture with soft tissue laceration.? No foreign body. ? ? ? Approved by: Richardson Chan M.D. on 09/12/2022 at 13:15? [facility] Narrative Medical decision making narrative: This is a 71-year-old male who is presenting to the ED via POV with a left thumb blunt injury sustained while using a wood splitter with a laceration through the nail bed and distal fingertip. Patient is right hand dominant. Differential diagnoses include, but are not limited to: Open fracture, vascular injury, full-thickness amputation, nail bed injury, contaminated wound, intra-articular fracture, vascular injury I performed a preliminary independent interpretation of the following imaging studies: Left finger x-ray of thumb showing fracture through tuft Course of Care: Saw patient, bleeding is controlled, ordered tetanus vaccination, pain control, x-ray, will consult with Dr. Diamond from orthopedics regarding laceration, nail bed repair and presumed open fracture Discussion of Management with other Health Professionals: Dr. Diamond at 1330, sent photos, and xray 1400- consultation with Dr. Diamond and his regarding treatment options with plan for orthopedic fixation of his left open distal phalanx tuft fracture with wire closure, nail bed laceration and partial amputation of the distal fingertip. He is on his way into the hospital to complete procedure and should arrive around 1500. Requests 2 g of Ancef given IV, patient's tetanus was updated, given Tylenol and ibuprofen for pain, 1500 Dr. Diamond arrived at patient's bedside, is anesthetizing his thumb with a digital block, provided [place] drain for finger tourniquet. He is using mixture of bupivacaine and lidocaine 2% without epinephrine. Patient was taken to PACU for surgical fixation of this. Was informed that patient can not return to the emergency department for discharge. Patient's symptoms improved over duration of stay with above-stated therapies. MIPS: This encounter doesn't have any diagnosis associated with MIPS criteria. Social determinants of health that may impact treatment or disposition: None Vital Signs: I, the ED provider, reviewed the patient?s vital signs, past medical records and encounters if available, and nursing notes. I have spoken with the patient/family and discussed today?s findings whom verbalize understanding. Counseling was provided regarding the diagnosis and prognosis, and specific details were provided for the plan of care. Questions are addressed and there is agreement with the plan and for follow-up. Patient is appropriate for outpatient management. Portions of this chart have been created with [employer] voice recognition software. Occasional wrong word or sound alike substitutions may have occurred due to the inherent limitations of this software. I, CATIE Farah, personally performed the services described in the documentation, and it accurately records my words and actions. I collaborated with the ED attending physician for WINIFRED level 2, 3, and some level 4s as needed Electronically signed by: CATIE Farah Discharge Plan Departure Patient Disposition: Home Clinical Impression: Laceration of finger nail bed, Open fracture of tuft of distal phalanx of finger Instructions: Fracture Reduction -- Open, DI for Laceration Repair -- Finger Activity Restrictions/Additional Instructions: *You have been diagnosed with [ ] *What to do: *Please continue to take your regular medications as directed. [ ] New medication prescriptions sent to your pharmacy: [ ] [ ] New medication written as a paper prescription [ ] No new medications given *Please follow up with your primary care provider in 2-3 days, call for an appointment. Let them know you were seen in the Emergency Department and that we asked that you be seen for follow-up. We will electronically transmit a record of today's note if your PCP is in our system *If you do not have a primary care provider please contact [phone] to establish care with one of the [facility] primary care providers. *Return to Emergency Department if you should have any new, worsening, or concerning symptoms, such as [fever greater than 101F, chills, worsening pain, persistent vomiting or other bothersome symptoms]. Prescriptions: No Action atorvastatin 10 mg tablet 10 mg PO DAILY metformin 500 mg tablet extended release 24 hr 500 mg PO DAILY cetirizine 10 mg Tablet 10 mg PO DAILY PRN (Reason: Allergies) diphenhydramine HCl [Benadryl] 25 mg Capsule 25 mg PO BEDTIME PRN (Reason: Insomnia) Referrals: Maninder Diamond MD [Physician] - 3-5 days Mando Gallo MD [Primary Care Provider] - Stand Alone Forms: Patient Portal/API <Trinh Robles DO - Last Filed: 09/12/22 19:32> [facility] Patient seen and evaluated by myself at request of [facility]. 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 Orthopedics consulted at bedside patient did go to the OR/fluoroscopy and was discharged by Orthopedics with orthopedic instructions. I was immediately available in the department for consultation. Documentation has been reviewed. I agree with assessment and plan.
--- NOTE | 2022-09-12 13:53 | PC.NURSE ---
Addendum entered by Jed Guy R.N. 09/12/22 13:55: Pt left thumb nail bed is dark in color. Original Note: Pt reports using a very dull axe to chop up kindling when he accidentally hit his left thumb. A laceration is noted from the base of his left thumb that goes through the nail bed. Pt reports sensation to tip of left thumb that is dull.
--- NOTE | 2022-09-12 14:09 | PC.NURSE ---
Pressure dressing applied while waiting for call back from consult. Moistened gauze used. Call light within reach.
[2022-09-12 14:16] VITALS: BP 160/78; PULSE 59; O2SAT 98
[2022-09-12 14:17] VITALS: BP 160/78; PULSE 60; O2SAT 97
[2022-09-12] MEDS: BUPIVACAINE 0.25% (PF) VIAL 30 ML INJ (14:37)
[2022-09-12] MEDS: CEFAZOLIN 2 GM/100 ML PREMIX 100 ML IV (14:37)
--- NOTE | 2022-09-12 15:25 | PC.NURSE ---
Dr. Diamond at bedside. Provider Crew aware.
--- NOTE | 2022-09-12 17:10 | DI.RAD.S_ITS ---
PROCEDURE: XR FINGER LT MIN 2V INDICATIONS: SP. PERC PINNING OF THUMB TECHNIQUE: AP hand, 2 views of the left thumb finger(s) acquired. COMPARISON: [facility], CR, XR FINGER LT MIN 2V, 09/12/2022, 13:09. FINDINGS: 2 intraoperative fluoroscopic images of the left thumb demonstrates interval percutaneous pin fixation of left thumb distal phalanx fracture. Post fixation alignment appears anatomic. No gross hardware complication. IMPRESSION: Fluoroscopic support for percutaneous pin fixation of left thumb distal phalanx fracture. Please see separate procedure note for further details. Dictated by: Wild Jean M.D. on 09/12/2022 at 17:39 Approved by: Wild Jean M.D. on 09/12/2022 at 17:41
--- NOTE | 2022-09-12 17:25 | P.OP_ITS ---
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 We discussed that to give his finger the best chance at recovery, we could attempt a replantation of the tip of the distal phalanx and repair the bone. If this does not work, he was informed that the distal tip may and he may require a revision amputation. He expressed understanding with the procedure we discussed the risks including the risk of infection, further damage to internal structures, revision surgery. He expressed understanding and wished to go forward with the procedure. Surgeon: Maninder Diamond Click Yes if Unassisted: Yes Anesthesia Type: Local Operative Notes Findings: Near complete amputation of the distal phalanx of his thumb under direct visualization Closure Type: primary Specimen(s): none sent Prosthetic devices, grafts, tissues, transplants, or devices: 0.045 K-wire Estimated Blood Loss (mL): 5 Blood products transfused: none Tourniquet time (min): 30 Procedure in detail: Patient was seen initially in the emergency department. We again discussed the risks and benefits of surgery and he wished to go forward. His left thumb was marked with my initials. He was brought back to the radiology suite and the left upper extremity was prepped and draped in the standard sterile fashion, this was placed over an upside-down C-arm for fluoroscopy. A time-out was performed and my initials were again confirmed. The thumb was anesthetized with bupivacaine and lidocaine, 15 cc. After adequate anesthesia was obtained, we began by placing a sterile tourniquet at the base of the thumb. His thumb was then irrigated with 1 L of sterile saline. The skin, fat, subcutaneous tissue and bone were all debrided with curette while irrigating. There were flecks of dirt and wood in the wound. After the finger was thoroughly cleaned, there was noted to be an oblique fracture of the distal phalanx and the thumb was being held on by a small amount of soft tissues on the ulnar side of the thumb. Using a 0.045 K- wire, I pinned the distal fragment in reverse, then reduce the fracture and pinned antegrade into the proximal fragment of the distal phalanx. Fluoroscopy was used to confirm pin position and fracture reduction. The pin was then bent and clipped in protected with a pin protector. The skin was then closed with 3- 0 nylon. The nail bed was completely denuded with exposed bone. For this reason, I fashioned sterile foil from a chromic suture package and place this over the germinal matrix and nail bed and sutured it into place with chromic. The thumb was then wrapped with Xeroform placed into a splint and wrapped with Coban and an Julio bandage. Complications: none Post-operative Condition: stable Plan for aftercare: Dressing to remain on for 3 days, then remove dressing and wash hand, replace with clean dry dressings for 2 more days.
--- NOTE | 2022-09-12 17:47 | PM.HP.1 ---
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 He was seen in the emergency department and Orthopedic surgery was consulted. He currently describes some numbness although he has sensation on the ulnar side of the thumb. No other complaints at this time. He is accompanied by his today. Patient History Medical History Advanced directives, counseling/discussion Allergic rhinitis, unspecified Benign essential tremor BPH w urinary obs/LUTS Chicken pox Chronic back pain Colon polyps Diabetes DM type 2 with diabetic dyslipidemia Fractures Measles Medicare annual wellness visit, initial Mixed hyperlipidemia Mumps Obstructive sleep apnea Overweight Personal history of colonic polyps Pneumothorax (~1968) Psoriasis, unspecified Shoulder pain (~1971) Stress reaction Wears glasses Surgical History Anesthesia Cyst (~2016) History of colonoscopy History of elbow surgery History of inguinal hernia repair History of surgery on wrist (~2017) No pertinent past surgical history Family & Social History Family History Father Cancer Mother Cancer Sister Multiple sclerosis Grandfather Cancer Grandmother Stroke Social History: household members spouse Safety & Behavioral: Feels Safe in Current Yes Environment Been Physically Hurt or No Threatened By a Person Tobacco & Substance use: Smoking Status Never smoker alcohol intake current alcohol intake frequency 0-2 drinks per day Substance Use Type does not use Meds Home Medications and Allergies Home Medications Medication Instructions Recorded Confirmed Type atorvastatin 10 mg tablet 10 mg PO DAILY 01/30/22 09/11/22 History metformin 500 mg tablet,extended 500 mg PO DAILY 01/30/22 09/11/22 History release 24 hr cetirizine 10 mg tablet 10 mg PO DAILY PRN Allergies 02/10/22 09/11/22 History diphenhydramine HCl 25 mg capsule 25 mg PO BEDTIME PRN Insomnia 02/10/22 09/11/22 History (Benadryl) Allergies Allergy/AdvReac Type Severity Reaction Status Date / Time ketamine Allergy Severe Anaphylaxis Verified 09/12/22 13:23 Review of Systems Review of Systems ROS: Yes All systems reviewed with the patient and are negative except as otherwise documented Exam Vital Signs (past 8 hours): - 09/12/22 11:38 09/12/22 14:16 09/12/22 14:17 Temperature 97.5 F L Pulse Rate 58 L 59 L Respiratory Rate 16 Blood Pressure 144/68 H 160/78 H 160/78 H Pulse Oximetry 97 98 Oxygen Delivery Method Room Air 09/12/22 14:17 Temperature Pulse Rate 60 Respiratory Rate Blood Pressure Pulse Oximetry 97 Oxygen Delivery Method Oxygen Delivery Method Room Air Narrative Exam Narrative: HEENT: Head atraumatic eyes anicteric moist membranes Cardiovascular: Palpable peripheral pulses warm and well-perfused extremities Respiratory: Breathing comfortably on room air Psychiatric: Appropriate mood and affect Neuro: No acute deficits aside from his finger Musculoskeletal: Focused exam of the left upper extremity demonstrates a near-complete amputation of his left thumb through the distal phalanx. Small amount of sensation on the ulnar side of the thumb, no sensation on the radial side of the thumb. Able to flex at the IP joint. Assessment & Plan Assessment & Plan narrative: Assessment: Near complete amputation left thumb Plan: We discussed exam and imaging, and discussed the need for a either revision amputation or attempt at salvaging the thumb with a distal phalanx replantation. With replantation, he understands that we would be fixing his bone as well as suturing the digit into place and protecting the nail bed. There is a possibility that this may not have enough blood flow and may result in the distal half of the phalanx dying. If this is the case he will need a revision amputation any ways. Because of this he wished to go forward with the replantation. All the risks were discussed with him at length and he wished to go forward with surgery. Time Spent With Patient Critical Care time: I spent a total of [] minutes of critical care time on this patient's care today; this time is exclusive of procedural time.
== END 2022-09-12 15:31 | disposition home or self-care (01) ==
PROVIDERS: Emergency Provider Nurse Practitioner Critical Care Medicine; PCP Internal Medicine
DX: S68.022A Partial traumatic metacarpophalangeal amputation of left thumb, initial encounter (principal); W29.8XXA Contact with other powered hand tools and household machinery, initial encounter; Z23 Encounter for immunization
CPT/HCPCS: 26236; 73140; 76000; 90471; 96365; 99284; 90715; J0690

== ENCOUNTER → 2023-07-26 17:15 | Outpatient (CLI) | payer MEDICARE, SELFPAY ==
[2023-07-26 18:34] LABS: Aspartate Aminotransferase 38 IU/L (17-59); BUN Creatinine Ratio 22.1 (6-22); Blood Urea Nitrogen 17 mg/dL (9-20); Calcium 9.7 mg/dL (8.4-10.2); Carbon Dioxide 30 mmol/L (22-32); Chloride 100 mmol/L (98-107); Cholesterol 170 mg/dL (140-199); Estimated Glomerular Filt Rate > 60 mL/min (>60); Glucose 148 mg/dL (80-110); HDL Cholesterol 70 mg/dL (40-60); HEMOLYSIS < 15 (0-50); LDL Cholesterol Calculated 79 mg/dL (<100); Sodium 137 mmol/L (137-145); Triglycerides 105 mg/dL (35-150)
[2023-07-26 19:03] LABS: Prostate Specific Antigen 2.33 ng/mL (0.10-4.00)
== END ==
PROVIDERS: PCP Internal Medicine; Referring Provider Internal Medicine; Visit Provider Internal Medicine
DX: E11.69 Type 2 diabetes mellitus with other specified complication (principal); E78.5 Hyperlipidemia, unspecified; N40.1 Benign prostatic hyperplasia with lower urinary tract symptoms; E78.2 Mixed hyperlipidemia; N13.8 Other obstructive and reflux uropathy
CPT/HCPCS: 36415; 80048; 80061; 83036; 84153; 84450

== ENCOUNTER → 2024-02-03 09:18 | Outpatient (CLI) | payer MEDICARE, SELFPAY ==
[2024-02-03 10:26] LABS: BUN Creatinine Ratio 24.7 (6-22); Blood Urea Nitrogen 18 mg/dL (9-20); Carbon Dioxide 32 mmol/L (22-32); Chloride 103 mmol/L (98-107); Estimated Glomerular Filt Rate > 60 mL/min (>60); Glucose 223 mg/dL (80-110); HEMOLYSIS < 15 (0-50); Potassium 4.4 mmol/L (3.4-5.1); Sodium 139 mmol/L (137-145)
[2024-02-03 10:34] LABS: Creatinine Urine Random 127.76 mg/dL
[2024-02-03 10:38] LABS: Microalbumin Urine Random 2.2 mg/dL (0-1.6)
[2024-02-03 10:40] LABS: Hemoglobin A1C% w Est Avg Glu 6.8 % (4.0-6.0)
== END ==
PROVIDERS: PCP Internal Medicine; Referring Provider Internal Medicine; Visit Provider Internal Medicine
DX: E11.69 Type 2 diabetes mellitus with other specified complication (principal); E78.2 Mixed hyperlipidemia
CPT/HCPCS: 36415; 80048; 82043; 82570; 83036

== ENCOUNTER → 2025-02-05 08:36 | Outpatient (CLI) | payer MEDICARE, SELFPAY ==
[2025-02-05 09:21] LABS: Creatinine Urine Random 204.16 mg/dL
[2025-02-05 09:22] LABS: Hematocrit 43.4 % (41-53); Mean Corpuscular HGB Conc 34.5 % (30-36); Mean Corpuscular Hemoglobin 33.9 PG (26-34); Mean Corpuscular Volume 98.1 fL (80-100); Platelet Count 201 X10^3/uL (150-400); Red Blood Cell Count 4.42 X10^6/uL (4.5-5.9); Red Cell Distribution Width 13.1 % (11.6-14.8); White Blood Cell Count 5.5 X10^3/uL (4.5-11.0)
[2025-02-05 09:26] LABS: Microalbumin Urine Random 1.2 mg/dL (0-1.6)
[2025-02-05 09:31] LABS: Hemoglobin A1C% w Est Avg Glu 6.5 % (4.0-6.0)
[2025-02-05 09:33] LABS: Aspartate Aminotransferase 31 IU/L (17-59); BUN Creatinine Ratio 12.4 (6-22); Blood Urea Nitrogen 11 mg/dL (9-20); Calcium 9.5 mg/dL (8.4-10.2); Carbon Dioxide 27 mmol/L (22-32); Chloride 103 mmol/L (98-107); Cholesterol 182 mg/dL (140-199); Estimated Glomerular Filt Rate > 60 mL/min (>60); Glucose 184 mg/dL (70-99); HDL Cholesterol 67 mg/dL (40-60); HEMOLYSIS < 15 (0-50); LDL Cholesterol Calculated 92 mg/dL (<100); Potassium 4.2 mmol/L (3.4-5.1); Sodium 137 mmol/L (137-145); Triglycerides 116 mg/dL (35-150)
[2025-02-05 10:04] LABS: Prostate Specific Antigen 1.71 ng/mL (0.10-4.00)
== END ==
PROVIDERS: PCP Internal Medicine; Referring Provider Internal Medicine; Visit Provider Internal Medicine
DX: E11.69 Type 2 diabetes mellitus with other specified complication (principal); E78.5 Hyperlipidemia, unspecified; N40.1 Benign prostatic hyperplasia with lower urinary tract symptoms; G47.33 Obstructive sleep apnea (adult) (pediatric); N13.8 Other obstructive and reflux uropathy; E78.2 Mixed hyperlipidemia
CPT/HCPCS: 36415; 80048; 80061; 82043; 82570; 83036; 84153; 84450; 85027

== ENCOUNTER → 2025-05-17 08:47 | Outpatient (CLI) | payer MEDICARE, SELFPAY ==
[2025-05-17 10:03] LABS: Hemoglobin A1C% w Est Avg Glu 5.4 % (4.0-6.0)
[2025-05-17 10:09] LABS: Blood Urea Nitrogen 12 mg/dL (9-20); Calcium 9.5 mg/dL (8.4-10.2); Carbon Dioxide 27 mmol/L (22-32); Chloride 103 mmol/L (98-107); Estimated Glomerular Filt Rate > 60 mL/min (>60); Glucose 109 mg/dL (70-99); HEMOLYSIS < 15 (0-50); Potassium 4.4 mmol/L (3.4-5.1); Sodium 140 mmol/L (137-145)
== END ==
PROVIDERS: PCP Internal Medicine; Referring Provider Internal Medicine; Visit Provider Internal Medicine
DX: E11.69 Type 2 diabetes mellitus with other specified complication (principal); E78.5 Hyperlipidemia, unspecified
CPT/HCPCS: 36415; 80048; 83036